=== PATIENT | male | born 1985 | race Caucasian/White ===

== ENCOUNTER 2020-05-20 16:13 | Emergency (ER) | payer OTHER ==
[~2020-05-20] VITALS: Ht 177.8 cm; Wt 86.2 kg
[2020-05-20 16:24] VITALS: BP 153/118
--- NOTE | 2020-05-20 18:08 | NUR ---
Pt ambulated to bed 04
--- NOTE | 2020-05-20 18:20 | NUR ---
SCOUT MARCIAL AT BEDSIDE EVALUATING PT.
--- NOTE | 2020-05-20 18:27 | NUR ---
PT NOTED ANKLE AREA WITH ERYTHEMA AND SWELLING ALSO OPEN SORES APPEARING >2 WKS---PT AOX4, AFIBRILE , AMBULATORY , WITH RT LEG PAIN 05/12 . HX--DENIES RX---NONE
[2020-05-20] MEDS ORDERED: KETOROLAC 30 MG/ML VIAL IM ONE (18:35)
[2020-05-20] MEDS ORDERED: cefTRIAXone 1,000 MG in LIDOCAINE MPF 1% 2.1 ML IM ONE (18:35)
[2020-05-20] MEDS ORDERED: cefTRIAXone 1,000 MG in LIDOCAINE MPF 1% 2.1 ML IM STA (18:43)
[2020-05-20] MEDS ORDERED: KETOROLAC 30 MG/ML VIAL IM STA (18:43)
[2020-05-20] MEDS ORDERED: cefTRIAXone 1,000 MG VIAL ONE (19:05)
[2020-05-20] MEDS ORDERED: LIDOCAINE MPF 1% 5 ML ONE (19:05)
[2020-05-20 19:22] VITALS: BP 153/118
--- NOTE | 2020-05-20 19:23 | NUR ---
Patient discharged with v/s stable. Written and verbal after care instructions given and explained regarding cellulitis. Patient alert, oriented and verbalized understanding of instructions. Ambulatory with steady gait. All questions addressed prior to discharge. ID band removed. Patient advised to follow up with PMD. Rx of bactrim , keflex and ibuprofen given. Patient educated on indication of medication including possible reaction and side effects. Opportunity to ask questions provided and answered.
== END 2020-05-20 19:23 | disposition home or self-care (01) ==
LOC: MED 16:13
DX: L01.00 Impetigo, unspecified (principal); L03.116 Cellulitis of left lower limb; L03.115 Cellulitis of right lower limb; R03.0 Elevated blood-pressure reading, without diagnosis of hypertension; F17.210 Nicotine dependence, cigarettes, uncomplicated
CPT/HCPCS: 96372; 99284; J0696; J1885; J2001